=== PATIENT | male | born 1940 | race Caucasian/White ===

== ENCOUNTER 2023-04-08 12:43 | Emergency (ER) | payer MEDICARE ==
[~2023-04-08] VITALS: Ht 185.4 cm; Wt 90.1 kg
[2023-04-08 12:59] VITALS: TEMP 97.6
[2023-04-08 13:53] LABS: ALANINE AMINOTRANSFERASE 40 U/L (12-78); ALBUMIN 3.2 G/DL (3.4-5.0); ALBUMIN/GLOBULIN RATIO 0.9 (1.1-1.5); ALKALINE PHOSPHATASE 78 IU/L (46-116); ANION GAP 2 (8-16); ASPARTATE AMINO TRANSFERASE 52 U/L (10-37); BLOOD UREA NITROGEN 18 MG/DL (7-18); BUN/CREATININE RATIO 16.2 (10.0-20.0); CALCIUM 8.7 MG/DL (8.5-10.1); CHLORIDE 102 MMOL/L (99-107); CREATININE 1.11 MG/DL (0.60-1.10); GLUCOSE 127 MG/DL (70-104); POTASSIUM 3.7 MMOL/L (3.5-5.1); SODIUM 136 MMOL/L (135-145); TOTAL CARBON DIOXIDE 31.6 MMOL/L (24-32); TOTAL PROTEIN 6.6 G/DL (6.4-8.2); eCRCL 57 ML/MIN; eGFR 63 ML/MIN
[2023-04-08 13:54] LABS: BASOPHILS % (AUTO) 0.6 % (0-1); EOSINOPHILS # (AUTO) 0.2 X10'3 (0-0.9); EOSINOPHILS % (AUTO) 2.3 % (0-6); HEMATOCRIT 43.1 % (42.0-52.0); HEMOGLOBIN 14.5 g/dl (14.0-17.9); LYMPHOCYTES # (AUTO) 0.5 X10'3 (1.1-4.8); LYMPHOCYTES % (AUTO) 6.9 % (21-51); MEAN CORPUSCULAR HEMOGLOBIN 33.3 PG (27.0-31.0); MEAN CORPUSCULAR HGB CONC 33.7 g/dL (33.0-36.5); MEAN PLATELET VOLUME 7.2 FL (7.4-10.4); MONOCYTES # (AUTO) 0.9 X10'3 (0-0.9); MONOCYTES % (AUTO) 12.2 % (2-12); NEUTROPHILS # (AUTO) 5.5 X10'3 (1.8-7.7); PLATELET COUNT 186 X10'3 (140-440); RED BLOOD COUNT 4.36 X10'6 (4.70-6.10); RED CELL DISTRIBUTION WIDTH 14.8 % (11.5-14.5); WHITE BLOOD COUNT 7.1 X10'3 (4.5-11.0)
[2023-04-08 14:01] LABS: PRO BRAIN NATRIURETIC PEPTIDE 549 PG/ML (0-450)
[2023-04-08 16:47] VITALS: BP 177/78; PULSE 60; RESP 15; O2SAT 99
[2023-04-08] MEDS ORDERED: FURO40TA4 PO (16:50)
[2023-04-08] MEDS ORDERED: POTA-188 PO (16:50)
== END 2023-04-08 17:11 | disposition home or self-care (01) ==
LOC: ER 12:43
DX: R60.0 Localized edema (principal); Z88.2 Allergy status to sulfonamides
CPT/HCPCS: 36415; 71045; 80053; 83880; 84484; 85025; 93005; 99285

== ENCOUNTER 2023-06-07 06:15 | Day surgery (SDC) | payer MEDICARE ==
[2023-06-07] VITALS (10 sets, daily range): BP systolic 151–187; BP diastolic 77–96; PULSE 60–79; RESP 11–18; TEMP 98.1; O2SAT 93–100
[~2023-06-07] VITALS: Ht 185.4 cm; Wt 89.9 kg
[2023-06-07] MEDS ORDERED: cefazolin 2gm/D5W 100mL 100 ML IV ONE (06:45)
[2023-06-07] MEDS ORDERED: CARV25TA56 PO (06:49)
[2023-06-07] MEDS ORDERED: WARF-55 PO (06:49)
[2023-06-07] MEDS ORDERED: FURO40TA4 PO (06:49)
[2023-06-07] MEDS ORDERED: LOSA100T58 PO (06:49)
[2023-06-07] MEDS ORDERED: ROSU10TA28 PO (06:49)
[2023-06-07] MEDS ORDERED: AMI200T PO (06:49)
[2023-06-07] MEDS ORDERED: HYDR25TA4 PO (06:49)
[2023-06-07] MEDS ORDERED: POTA-206 PO (06:49)
[2023-06-07 07:13] LABS: BASOPHILS % (AUTO) 0.4 % (0-1); EOSINOPHILS # (AUTO) 0.1 X10'3 (0-0.9); EOSINOPHILS % (AUTO) 1.9 % (0-6); HEMATOCRIT 40.8 % (42.0-52.0); LYMPHOCYTES % (AUTO) 12.7 % (21-51); MEAN CORPUSCULAR HEMOGLOBIN 34.1 PG (27.0-31.0); MEAN CORPUSCULAR HGB CONC 34.4 g/dL (33.0-36.5); MEAN CORPUSCULAR VOLUME 99.1 FL (78-98); MEAN PLATELET VOLUME 6.8 FL (7.4-10.4); MONOCYTES # (AUTO) 0.9 X10'3 (0-0.9); MONOCYTES % (AUTO) 11.5 % (2-12); NEUTROPHILS # (AUTO) 5.5 X10'3 (1.8-7.7); NEUTROPHILS % (AUTO) 73.5 % (42-75); PLATELET COUNT 177 X10'3 (140-440); RED BLOOD COUNT 4.11 X10'6 (4.70-6.10); RED CELL DISTRIBUTION WIDTH 14.1 % (11.5-14.5); WHITE BLOOD COUNT 7.5 X10'3 (4.5-11.0)
[2023-06-07] MEDS: VANCOMYCIN 1,500MG in NS 300ml IVPB IV ONE (07:17)
[2023-06-07 07:26] LABS: INR 1.2 INR; PROTHROMBIN TIME 12.9 SECONDS (9.0-12.0)
[2023-06-07 07:53] LABS: ALBUMIN 3.3 G/DL (3.4-5.0); ANION GAP 11 (8-16); BLOOD UREA NITROGEN 15 MG/DL (7-18); BUN/CREATININE RATIO 12.7 (10.0-20.0); CALCIUM 9.1 MG/DL (8.5-10.1); CHLORIDE 101 MMOL/L (99-107); CREATININE 1.18 MG/DL (0.60-1.10); GLUCOSE 126 MG/DL (70-104); MAGNESIUM 1.7 MG/DL (1.5-2.4); POTASSIUM 3.5 MMOL/L (3.5-5.1); SODIUM 139 MMOL/L (135-145); TOTAL CARBON DIOXIDE 26.7 MMOL/L (24-32); eCRCL 54 ML/MIN; eGFR 59 ML/MIN
[2023-06-07] MEDS ORDERED: midazolam 1 mg/ML 2ml injection ONE ×5 (08:15→11:19)
[2023-06-07] MEDS ORDERED: fentaNYL/PF 50MCG/1 ML 2ML syringe ONE (08:15)
[2023-06-07] MEDS ORDERED: vancomycin 1,000mg inj ONE (08:15)
[2023-06-07] MEDS ORDERED: LIDOCAINE 2%/EPI 1:100,000 inj. Multi-dose 20 ML VIAL ONE (08:15)
[2023-06-07] MEDS ORDERED: iohexol 350 MG/ML 50ML vial IV ONE (08:15)
[2023-06-07] MEDS ORDERED: HYDROmorphone 1 mg/ml syringe ONE (09:45)
[2023-06-07] MEDS ORDERED: diphenhydrAMINE 50 mg/ml inj ONE (10:07)
[2023-06-07] MEDS ORDERED: HYDROcodone/acetaminophen 10/325mg tab PO PRN (12:30)
[2023-06-07] MEDS ORDERED: HYDROcodone/acetaminophen 5mg/325mg tablet PO PRN (12:30)
[2023-06-07] MEDS ORDERED: normal saline 1000ml 1,000 ML IV ONE (12:35)
== END 2023-06-07 14:59 | disposition home or self-care (01) ==
LOC: SSTAY O 06:15
PROVIDERS: ATTEND Internal Medicine Cardiovascular Disease
DX: I44.7 Left bundle-branch block, unspecified (principal); I42.9 Cardiomyopathy, unspecified; I11.0 Hypertensive heart disease with heart failure; I50.22 Chronic systolic (congestive) heart failure; I45.3 Trifascicular block; E78.5 Hyperlipidemia, unspecified; I48.0 Paroxysmal atrial fibrillation; Z79.01 Long term (current) use of anticoagulants; Z79.899 Other long term (current) drug therapy; Z98.41 Cataract extraction status, right eye; Z98.42 Cataract extraction status, left eye; Z88.2 Allergy status to sulfonamides; Z72.89 Other problems related to lifestyle
CPT/HCPCS: 33208; 33225; 36415; 71045; 80048; 83735; 85025; 85610; 93005; 99152; 99153; C1769; C1898; C1900; C2621; J1170; J1200; J2250; J3010; J3370; J7030; J7040; Q9967; 33217; 33221